=== PATIENT | female | born 1985 | race Caucasian/White ===

== ENCOUNTER 2017-10-02 23:38 | Emergency (ER) | payer OTHER ==
[~2017-10-02] VITALS: Ht 170.2 cm; Wt 86.0 kg
[~2017-10-02 23:38] MED LIST: MAGN400C PO
[2017-10-03 01:02] LABS: BASOPHILS % (AUTO) 0.4 % (0-1); EOSINOPHILS % (AUTO) 0.8 % (0-6); HEMOGLOBIN 9.5 g/dl (12.0-16.0); LYMPHOCYTES # (AUTO) 1.2 X10'3 (1.1-4.8); LYMPHOCYTES % (AUTO) 23.5 % (21-51); MEAN CORPUSCULAR HEMOGLOBIN 25.8 PG (27.0-31.0); MEAN CORPUSCULAR HGB CONC 33.8 % (33.0-36.5); MEAN CORPUSCULAR VOLUME 76.1 FL (78-98); MEAN PLATELET VOLUME 8.4 FL (7.4-10.4); MONOCYTES # (AUTO) 0.7 X10'3 (0-0.9); MONOCYTES % (AUTO) 13.7 % (2-12); NEUTROPHILS % (AUTO) 61.6 % (42-75); PLATELET COUNT 208 X10'3 (140-440); RED BLOOD COUNT 3.68 X10'6 (4.20-5.60); RED CELL DISTRIBUTION WIDTH 15.7 % (11.5-14.5); WHITE BLOOD COUNT 4.9 X10'3 (4.5-11.0)
[2017-10-03 01:17] LABS: D-DIMER < 0.19 MG/L FEU (0-0.50)
[2017-10-03 01:23] LABS: ALANINE AMINOTRANSFERASE 19 U/L (12-78); ALBUMIN 3.7 G/DL (3.4-5.0); ALBUMIN/GLOBULIN RATIO 1.1 (1.1-1.5); ALKALINE PHOSPHATASE 66 IU/L (46-116); ANION GAP 9 (8-16); ASPARTATE AMINO TRANSFERASE 12 U/L (10-37); BILIRUBIN,TOTAL 0.5 MG/DL (0.1-1.0); BLOOD UREA NITROGEN 13 MG/DL (7-18); BUN/CREATININE RATIO 21.7 (6.6-38.0); CHLORIDE 105 MMOL/L (99-107); GLUCOSE 87 MG/DL (70-104); SODIUM 142 MMOL/L (135-145); TOTAL CARBON DIOXIDE 28.3 MMOL/L (24-32); TOTAL PROTEIN 7.1 G/DL (6.4-8.2); eGFR > 90 ML/MIN
[2017-10-03 01:28] LABS: CLARITY,URINE Clear (Clear); COLOR,URINE Yellow (Yellow); GLUCOSE, URINE Negative (Neg); KETONES,URINE 15 mg/dl (Neg); LEUKOCYTE ESTERASE ,URINE Trace (Neg); NITRITES, URINE Negative (Neg); OCCULT BLOOD,URINE Negative (Neg); PH,URINE 5.5 (4.8-8.0); PROTEIN,URINE Negative (Neg); URINE HCG NEGATIVE (NEG)
[2017-10-03 01:29] LABS: UA COLLECTION TYPE CLN CATCH MIDSTREAM
[2017-10-03 01:35] LABS: BACTERIA,URINE 1+ /HPF (Neg); MUCUS STRANDS FEW /LPF (Neg); RBC,URINE NONE SEEN /HPF (0-2); SQUAMOUS EPITHELIAL CELL,UR FEW /LPF (FEW); WBC,URINE 0-4 /HPF (0-4)
[2017-10-03 01:49] VITALS: BP 135/79
== END 2017-10-03 02:00 | disposition home or self-care (01) ==
LOC: ER 23:38
DX: R00.0 Tachycardia, unspecified (principal); D50.9 Iron deficiency anemia, unspecified; R10.11 Right upper quadrant pain
CPT/HCPCS: 36415; 71045; 80053; 81001; 81025; 83880; 84484; 85025; 85379; 87088; 93005; 99285

== ENCOUNTER 2020-03-31 12:39 | Emergency (ER) | payer BC, OTHER, SELFPAY ==
[~2020-03-31] VITALS: Ht 170.2 cm; Wt 91.0 kg
[2020-03-31] MEDS ORDERED: NO HOME MEDS (13:17)
[2020-03-31] MEDS ORDERED: ketorolac trometh. 30mg/ml inj. IV ONE (13:20)
[2020-03-31] MEDS ORDERED: normal saline 1000ML IV soln IVB ONE (13:20)
[2020-03-31] MEDS ORDERED: LORazepam 2 mg/ml vial IV ONE (13:20)
[2020-03-31 13:45] LABS: BASOPHILS % (AUTO) 0.4 % (0-1); EOSINOPHILS # (AUTO) 0.1 X10'3 (0-0.9); HEMATOCRIT 37.6 % (35.0-45.0); HEMOGLOBIN 12.8 g/dl (12.0-16.0); LYMPHOCYTES % (AUTO) 18.5 % (21-51); MEAN CORPUSCULAR HEMOGLOBIN 29.5 PG (27.0-31.0); MEAN CORPUSCULAR HGB CONC 34.1 g/dL (33.0-36.5); MEAN CORPUSCULAR VOLUME 86.5 FL (78-98); MEAN PLATELET VOLUME 8.7 FL (7.4-10.4); MONOCYTES # (AUTO) 0.6 X10'3 (0-0.9); MONOCYTES % (AUTO) 10.9 % (2-12); NEUTROPHILS # (AUTO) 3.8 X10'3 (1.8-7.7); NEUTROPHILS % (AUTO) 69.2 % (42-75); PLATELET COUNT 172 X10'3 (140-440); RED BLOOD COUNT 4.35 X10'6 (4.20-5.60); RED CELL DISTRIBUTION WIDTH 13.6 % (11.5-14.5); WHITE BLOOD COUNT 5.4 X10'3 (4.5-11.0)
[2020-03-31 14:03] LABS: ALANINE AMINOTRANSFERASE 19 U/L (12-78); ALBUMIN 4.1 G/DL (3.4-5.0); ALBUMIN/GLOBULIN RATIO 1.2 (1.1-1.5); ALKALINE PHOSPHATASE 67 IU/L (46-116); ANION GAP 14 (8-16); ASPARTATE AMINO TRANSFERASE 13 U/L (10-37); BILIRUBIN,TOTAL 0.6 MG/DL (0.1-1.0); BLOOD UREA NITROGEN 9 MG/DL (7-18); BUN/CREATININE RATIO 10.6 (6.6-38.0); CALCIUM 9.1 MG/DL (8.5-10.1); CHLORIDE 104 MMOL/L (99-107); CREATININE 0.85 MG/DL (0.40-0.90); GLUCOSE 108 MG/DL (70-104); POTASSIUM 3.2 MMOL/L (3.5-5.1); SODIUM 139 MMOL/L (135-145); TOTAL CARBON DIOXIDE 21.4 MMOL/L (24-32); TOTAL PROTEIN 7.6 G/DL (6.4-8.2); eGFR 77 ML/MIN
[2020-03-31 14:53] VITALS: BP 123/67
== END 2020-03-31 14:54 | disposition home or self-care (01) ==
LOC: ER 12:39 → EEVIPCON 12:39 → ER 14:54
DX: B34.9 Viral infection, unspecified (principal); M79.10 Myalgia, unspecified site; R51 Headache; R07.89 Other chest pain; Z98.51 Tubal ligation status; Z98.890 Other specified postprocedural states
CPT/HCPCS: 36415; 71045; 80053; 84145; 85025; 93005; 96374; 96375; 99285; J1885; J2060; J7030

== ENCOUNTER 2020-05-10 07:50 | Outpatient (CLI) | payer BC ==
[~2020-05-10 07:50] MED LIST changes: -MAGN400C PO; +NO HOME MEDS
[2020-05-10 09:17] LABS: ALANINE AMINOTRANSFERASE 27 U/L (12-78); ALBUMIN 4.1 G/DL (3.4-5.0); ALBUMIN/GLOBULIN RATIO 1.2 (1.1-1.5); ALKALINE PHOSPHATASE 58 IU/L (46-116); ANION GAP 8 (8-16); ASPARTATE AMINO TRANSFERASE 12 U/L (10-37); BILIRUBIN,TOTAL 0.5 MG/DL (0.1-1.0); BLOOD UREA NITROGEN 14 MG/DL (7-18); BUN/CREATININE RATIO 25.5 (6.6-38.0); CALCIUM 8.7 MG/DL (8.5-10.1); CHLORIDE 105 MMOL/L (99-107); CHOL/HDL RATIO 2.7 (0.00-4.99); CHOLESTEROL 119 MG/DL (0-200); CREATININE 0.55 MG/DL (0.40-0.90); GLUCOSE 81 MG/DL (70-104); HDL CHOLESTEROL 44 MG/DL (35-60); LDL CHOLESTEROL 71 MG/DL (50-100); POTASSIUM 4.3 MMOL/L (3.5-5.1); SODIUM 140 MMOL/L (135-145); TOTAL CARBON DIOXIDE 27.5 MMOL/L (24-32); TOTAL PROTEIN 7.4 G/DL (6.4-8.2); TRIGLYCERIDES 36 MG/DL (20-135); eGFR > 90 ML/MIN
== END 2020-05-10 23:59 | disposition home or self-care (01) ==
LOC: LAB 07:50
PROVIDERS: ATTEND Family Medicine
DX: Z00.00 Encounter for general adult medical examination without abnormal findings (principal)
CPT/HCPCS: 36415; 80053; 80061; 84439; 84443

== ENCOUNTER 2020-11-15 15:24 | Outpatient (CLI) | payer BC ==
[2020-11-15 16:44] LABS: % IRON SATURATION 96 % (11-46); IRON 244 UG/DL (49-151); TOTAL IRON BINDING CAPACITY 255 UG/DL (259-388)
[2020-11-15 16:51] LABS: ALANINE AMINOTRANSFERASE 32 U/L (12-78); ALBUMIN 3.7 G/DL (3.4-5.0); ALBUMIN/GLOBULIN RATIO 1.2 (1.1-1.5); ALKALINE PHOSPHATASE 98 IU/L (46-116); ANION GAP 8 (8-16); ASPARTATE AMINO TRANSFERASE 16 U/L (10-37); BILIRUBIN,TOTAL 0.4 MG/DL (0.1-1.0); BLOOD UREA NITROGEN 14 MG/DL (7-18); BUN/CREATININE RATIO 16.9 (6.6-38.0); C-REACTIVE PROTEIN 0.52 MG/DL (0.0-0.5); CHLORIDE 106 MMOL/L (99-107); CHOL/HDL RATIO 3.1 (0.00-4.99); CHOLESTEROL 95 MG/DL (0-200); CREATININE 0.83 MG/DL (0.40-0.90); GLUCOSE 102 MG/DL (70-104); HDL CHOLESTEROL 31 MG/DL (35-60); LDL CHOLESTEROL 47 MG/DL (50-100); POTASSIUM 4.1 MMOL/L (3.5-5.1); SODIUM 141 MMOL/L (135-145); TOTAL CARBON DIOXIDE 26.8 MMOL/L (24-32); TOTAL PROTEIN 6.8 G/DL (6.4-8.2); TRIGLYCERIDES 168 MG/DL (20-135); eGFR 79 ML/MIN
[2020-11-15 17:15] LABS: HEMOGLOBIN 9.3 g/dl (12.0-16.0); WHITE BLOOD COUNT 9.9 X10'3 (4.5-11.0)
[2020-11-15 17:17] LABS: HEMATOCRIT 26.5 % (35.0-45.0); MEAN CORPUSCULAR HEMOGLOBIN 31.5 PG (27.0-31.0); MEAN CORPUSCULAR HGB CONC 35.2 g/dL (33.0-36.5); MEAN CORPUSCULAR VOLUME 89.3 FL (78-98); MEAN PLATELET VOLUME 10.2 FL (7.4-10.4); RED BLOOD COUNT 2.97 X10'6 (4.20-5.60)
[2020-11-15 17:56] LABS: RHEUM FACTOR QUAL REFLEX TITER NEGATIVE (Neg)
[2020-11-15 18:27] LABS: PLATELET COUNT 14 X10'3 (140-440)
[2020-11-15 19:17] LABS: NUCLEATED RED BLOOD CELLS 1 /100WBC (0-0); TOTAL CELLS COUNTED 100
[2020-11-15 19:21] LABS: PLATELET ESTIMATE DECREASED
[2020-11-15 20:02] LABS: ANISOCYTOSIS 2+
[2020-11-15 20:04] LABS: POLYCHROMASIA 1+
[2020-11-15 20:32] LABS: SMUDGE CELLS 1+
[2020-11-17 17:04] LABS: ANTINUCLEAR ANTIBODIES Negative (Negative)
== END 2020-11-15 23:59 | disposition home or self-care (01) ==
LOC: LAB 15:24
PROVIDERS: ATTEND Family Medicine
DX: Z00.00 Encounter for general adult medical examination without abnormal findings (principal); D64.9 Anemia, unspecified; R53.83 Other fatigue
CPT/HCPCS: 36415; 80053; 80061; 82306; 82607; 82652; 82746; 83540; 83550; 84439; 84443; 85007; 85025; 85651; 86038; 86140; 86430

== ENCOUNTER 2020-12-19 12:06 | Outpatient (CLI) | payer BC ==
[2020-12-19 12:56] LABS: ALANINE AMINOTRANSFERASE 405 U/L (12-78); ALBUMIN 3.7 G/DL (3.4-5.0); ALBUMIN/GLOBULIN RATIO 1.1 (1.1-1.5); ALKALINE PHOSPHATASE 86 IU/L (46-116); ASPARTATE AMINO TRANSFERASE 131 U/L (10-37); BILIRUBIN,DIRECT 0.4 MG/DL (0-0.3); BILIRUBIN,TOTAL 1.5 MG/DL (0.1-1.0)
--- NOTE | 2020-12-19 12:56 | NUR ---
PT ARRIVED FOR BLOOD DRAW FROM PREVIOUSLY PLACED PICC LINE. PICC LINE HUB CLEANED AND ALLOWED TO DRY. PICC ASPIRATES BLOOD AND FLUSHES WITHOUT DIFFICULTY. BLOOD DRAWN, PLACED INTO GREEN TUBE PER LAB AND LABELED CORRECTLY. PICC LINE FLUSHED USING 20 CC SALINE AND ALCOHOL CAPS PLACED ON BOTH LUMENS. Campos MORENO PICC RN
== END 2020-12-19 23:59 | disposition home or self-care (01) ==
LOC: LAB 12:06
PROVIDERS: ATTEND Nurse Practitioner Family
DX: C95.00 Acute leukemia of unspecified cell type not having achieved remission (principal)
CPT/HCPCS: 36415; 80076

== ENCOUNTER 2020-12-28 14:05 | Emergency (ER) | payer BC ==
[~2020-12-28] VITALS: Ht 170.2 cm; Wt 89.1 kg
[2020-12-28 14:08] VITALS: BP 128/70
== END 2020-12-28 14:36 | disposition home or self-care (01) ==
LOC: ER 14:05 → EEVIPCON 14:05 → ER 14:36
DX: H57.04 Mydriasis (principal); C91.00 Acute lymphoblastic leukemia not having achieved remission; R11.0 Nausea; H53.8 Other visual disturbances; Z98.51 Tubal ligation status; Z98.890 Other specified postprocedural states
CPT/HCPCS: 99281; 99284

== ENCOUNTER 2021-01-02 06:16 | Day surgery (SDC) | payer BC ==
[~2021-01-02] VITALS: Ht 170.2 cm; Wt 88.9 kg
[2021-01-02] MEDS ORDERED: PROC-8 PO (06:41)
[2021-01-02] MEDS ORDERED: [UNRECOGNIZED DRUG - CODE] (06:41)
[2021-01-02] MEDS ORDERED: LEVO500T89 PO (06:41)
[2021-01-02] MEDS ORDERED: DASA70TA PO (06:41)
[2021-01-02] MEDS ORDERED: ACYC-1 PO (06:41)
[2021-01-02] MEDS ORDERED: ONDA8TAB65 PO (06:41)
[2021-01-02 06:44] VITALS: BP 139/87
[2021-01-02] MEDS ORDERED: normal saline 1000ml 1,000 ML IV PRN (06:45)
--- NOTE | 2021-01-02 07:48 | NUR ---
IV PLACEMENT WITH PICC LINE REMOVAL DUE TO PICC LINE BEING PULLED MOSTLY OUT DURING DRESSING CHANGE FROM OTHER FACILITY. Campos MORENO PICC RN
[2021-01-02] MEDS ORDERED: heparin sodium, porcine/PF 100unit/ml 5ML syringe ONE ×2 (08:13→08:59)
[2021-01-02] MEDS ORDERED: LIDOcaine 1%/PF 5ML 10 MG/ML VIAL ONE (08:14)
[2021-01-02] MEDS ORDERED: fentaNYL/PF 50MCG/1 ML 2ML syringe ONE ×3 (08:14→08:47)
[2021-01-02] MEDS ORDERED: midazolam 1 mg/ML 2ml injection ONE ×5 (08:14→08:47)
[2021-01-02] MEDS ORDERED: ondansetron/PF 4mg/2ml inj ONE (08:16)
[2021-01-02 09:21] VITALS: BP 120/59
[2021-01-02 09:36] VITALS: BP 111/72
[2021-01-02 09:48] VITALS: BP 111/73
[2021-01-02 10:03] VITALS: BP 112/74
== END 2021-01-02 10:20 | disposition home or self-care (01) ==
LOC: SSTAY O 06:16
PROVIDERS: ATTEND Radiology Vascular & Interventional Radiology
DX: C92.00 Acute myeloblastic leukemia, not having achieved remission (principal); D50.9 Iron deficiency anemia, unspecified; Z79.899 Other long term (current) drug therapy; Z98.890 Other specified postprocedural states; Z98.51 Tubal ligation status
CPT/HCPCS: 36415; 36561; 76937; 77001; 85610; 99152; 99153; C1769; C1788; C1894; J1642; J2250; J2405; J3010

== ENCOUNTER 2021-01-15 10:43 | Outpatient (CLI) | payer BC ==
[~2021-01-15 10:43] MED LIST changes: +ACYC-1 PO; +DASA70TA PO; +LEVO500T89 PO; -NO HOME MEDS; +ONDA8TAB65 PO; +PROC-8 PO; +[UNRECOGNIZED DRUG - CODE]
[2021-01-15 11:25] LABS: MEAN PLATELET VOLUME 8.2 FL (7.4-10.4)
[2021-01-15 11:27] LABS: HEMATOCRIT 26.4 % (35.0-45.0); MEAN CORPUSCULAR HGB CONC 34.1 g/dL (33.0-36.5); PLATELET COUNT 93 X10'3 (140-440); RED CELL DISTRIBUTION WIDTH 15.9 % (11.5-14.5)
[2021-01-15 11:36] LABS: ALANINE AMINOTRANSFERASE 78 U/L (12-78); ALBUMIN/GLOBULIN RATIO 1.3 (1.1-1.5); ALKALINE PHOSPHATASE 94 IU/L (46-116); ANION GAP 10 (8-16); ASPARTATE AMINO TRANSFERASE 14 U/L (10-37); BILIRUBIN,TOTAL 0.7 MG/DL (0.1-1.0); BLOOD UREA NITROGEN 12 MG/DL (7-18); BUN/CREATININE RATIO 21.1 (6.6-38.0); CALCIUM 9.2 MG/DL (8.5-10.1); CHLORIDE 102 MMOL/L (99-107); CREATININE 0.57 MG/DL (0.40-0.90); GLUCOSE 102 MG/DL (70-104); POTASSIUM 4.1 MMOL/L (3.5-5.1); SODIUM 141 MMOL/L (135-145); TOTAL CARBON DIOXIDE 29.1 MMOL/L (24-32); TOTAL PROTEIN 7.2 G/DL (6.4-8.2); eGFR > 90 ML/MIN
[2021-01-15 11:42] LABS: WHITE BLOOD COUNT 0.2 X10'3 (4.5-11.0)
[2021-01-15 12:00] LABS: NUCLEATED RED BLOOD CELLS 0 /100WBC (0-0); TOTAL CELLS COUNTED 50
[2021-01-15 12:01] LABS: LARGE PLATELETS FEW; PLATELET ESTIMATE DECREASED
== END 2021-01-15 23:59 | disposition home or self-care (01) ==
LOC: LAB 10:43
PROVIDERS: ATTEND Internal Medicine Hematology & Oncology
DX: C91.00 Acute lymphoblastic leukemia not having achieved remission (principal)
CPT/HCPCS: 36415; 80053; 85007; 85025

== ENCOUNTER 2021-02-01 11:13 | Day surgery (SDC) | payer BC ==
[~2021-02-01] VITALS: Ht 170.2 cm; Wt 190.0 kg
[2021-02-01] VITALS (9 sets, daily range): BP systolic 108–132; BP diastolic 24–77
[2021-02-01] MEDS ORDERED: acetaminophen 325mg tablet PO ONE (12:15)
[2021-02-01] MEDS ORDERED: diphenhydrAMINE 25mg capsule PO ONE (12:15)
== END 2021-02-01 15:15 | disposition home or self-care (01) ==
LOC: SSTAY O 11:13
PROVIDERS: ATTEND Internal Medicine Hematology & Oncology
DX: C91.00 Acute lymphoblastic leukemia not having achieved remission (principal)
CPT/HCPCS: 36415; 36430; 86885; 86900; 86901; 86920; 86945; P9016; Q0163

== ENCOUNTER 2021-06-14 12:03 | Emergency (ER) | payer BC ==
[2021-06-14] VITALS (8 sets, daily range): BP systolic 93–125; BP diastolic 16–77
[~2021-06-14] VITALS: Ht 170.2 cm; Wt 86.4 kg
[~2021-06-14 12:03] MED LIST changes: -ACYC-1 PO; -LEVO500T89 PO; -ONDA8TAB65 PO; -PROC-8 PO; -[UNRECOGNIZED DRUG - CODE]
[2021-06-14] MEDS ORDERED: heparin sodium, porcine/PF 100unit/ml 5ML syringe IV SCH (19:05)
== END 2021-06-14 19:20 | disposition home or self-care (01) ==
LOC: ER 12:04 → EEVIPCON 12:04 → ER 19:20
DX: D64.9 Anemia, unspecified (principal); C91.00 Acute lymphoblastic leukemia not having achieved remission; R53.1 Weakness; Z98.51 Tubal ligation status; Z98.890 Other specified postprocedural states
CPT/HCPCS: 36415; 36430; 86885; 86900; 86901; 86920; 96374; 99285; J1642; P9016

== ENCOUNTER 2024-03-04 07:31 | Emergency (ER) | payer BC ==
[~2024-03-04] VITALS: Ht 170.2 cm; Wt 78.8 kg
[2024-03-04 07:41] VITALS: TEMP 96.7
[2024-03-04] MEDS: ondansetron/PF 4mg/2ml inj IV ONE (08:13)
[2024-03-04] MEDS: ringers solution, lacted 1,000 ML IV ONE ×2 (08:14)
[2024-03-04 12:43] LABS: BASOPHILS % (AUTO) 0.3 % (0-1); EOSINOPHILS % (AUTO) 0.4 % (0-6); HEMATOCRIT 40.8 % (35.0-45.0); HEMOGLOBIN 13.5 g/dl (12.0-16.0); LYMPHOCYTES # (AUTO) 0.4 X10'3 (1.1-4.8); LYMPHOCYTES % (AUTO) 3.1 % (21-51); MEAN CORPUSCULAR HEMOGLOBIN 27.2 PG (27.0-31.0); MEAN CORPUSCULAR VOLUME 82.6 FL (78-98); MEAN PLATELET VOLUME 8.1 FL (7.4-10.4); MONOCYTES # (AUTO) 0.6 X10'3 (0-0.9); MONOCYTES % (AUTO) 4.9 % (2-12); NEUTROPHILS # (AUTO) 11.5 X10'3 (1.8-7.7); NEUTROPHILS % (AUTO) 91.3 % (42-75); PLATELET COUNT 245 X10'3 (140-440); RED BLOOD COUNT 4.95 X10'6 (4.20-5.60); RED CELL DISTRIBUTION WIDTH 14.8 % (11.5-14.5); WHITE BLOOD COUNT 12.6 X10'3 (4.5-11.0)
[2024-03-04 12:57] LABS: ALANINE AMINOTRANSFERASE 46 U/L (12-78); ALBUMIN 4.2 G/DL (3.4-5.0); ALBUMIN/GLOBULIN RATIO 1.4 (1.1-1.5); ALKALINE PHOSPHATASE 67 IU/L (46-116); ANION GAP 8 (8-16); ASPARTATE AMINO TRANSFERASE 14 U/L (10-37); BILIRUBIN,TOTAL 0.4 MG/DL (0.1-1.0); BLOOD UREA NITROGEN 16 MG/DL (7-18); CALCIUM 9.4 MG/DL (8.5-10.1); CHLORIDE 106 MMOL/L (99-107); CREATININE 0.64 MG/DL (0.40-0.90); GLUCOSE 104 MG/DL (70-104); POTASSIUM 3.9 MMOL/L (3.5-5.1); SODIUM 143 MMOL/L (135-145); TOTAL CARBON DIOXIDE 29.4 MMOL/L (24-32); TOTAL PROTEIN 7.3 G/DL (6.4-8.2); eCRCL 117 ML/MIN; eGFR > 90 ML/MIN
[2024-03-04 13:42] VITALS: BP 104/69; PULSE 98; RESP 18; O2SAT 100
== END 2024-03-04 13:46 | disposition home or self-care (01) ==
LOC: ER 07:32
DX: R11.10 Vomiting, unspecified (principal); Z98.890 Other specified postprocedural states; Z98.51 Tubal ligation status
CPT/HCPCS: 36415; 74176; 80053; 85025; 96361; 96374; 99285; J2405; J7120

== ENCOUNTER 2025-05-25 09:42 | Outpatient (CLI) | payer BC ==
--- NOTE | 2025-05-25 19:05 | CARDIOLOGY REPORT ---
APPROVED REPORT EXAM: Comprehensive 2D, Doppler, and color-flow Echocardiogram. Patient Location: OUT-PATIENT Blood Pressure: 130/81 mmHg Heart Rate: 63 bpm Rhythm: NSR Indications Evaluate for pericardial effusion Hx of Leukemia with cardiotoxic meds Benzene Worker is Madi Collins MD No previous echo 2D Dimensions IVSd 1.0 (0.7-1.1cm) LVDd 4.7 cm PWd 1.0 (0.7-1.1cm) IVSs 1.3 (0.8-1.2cm) LVDs 3.4 (2.5-4.0cm) PWs 1.3 (0.8-1.2cm) LVOT Diameter 2.17 (1.8-2.4cm) LVEF(%) 53.9 (>50%) IVC 15.13 mm FS (%) 27.9 % SV 56.6 ml M-Mode Dimensions Left Atrium(MM) 4.18 (2.5-4.0cm) Aortic Root 2.59 (2.2-3.7cm) Aortic Valve AoV Peak Lukasz. 154.6 cm/s AoV VTI 32.7 cm AO Peak GR. 9.6 mmHg AO Mean GR. 5 mmHg LVOT VTI 25.33 cm LVOT Peak Lukasz. 117.8 cm/s JESSICA (VMAX) 2.82 cm2 JESSICA (VTI) 2.87 cm2 Mitral Valve MV E Velocity 85.2 cm/s MV DECEL TIME 180 ms MV A Velocity 64.7 cm/s MV PHT 48 ms E/A Ratio 1.3 MVA (PHT) 4.60 cm2 TDI E/Medial E' 10.7 Tricuspid Valve TR P. Velocity 217 cm/s RAP ESTIMATE 10 mmHg TR Peak Gr. 19 mmHg RVSP 29 mmHg Pulmonary Vein S2 Velocity 54.32 cm/s PVa Duration 77 msec LEFT VENTRICLE Normal LV size and wall thickness. Overall systolic function is normal. LVEF is 60%. RIGHT VENTRICLE RV appears normal in size and function. ATRIA Left atrium is mildly dilated. AORTIC VALVE Trileaflet AV appears sclerotic without stenosis. No insufficiency. MITRAL VALVE The mitral valve is normal in structure. Trace mitral regurgitation. TRICUSPID VALVE The tricuspid valve is normal in structure. Trace tricuspid regurgitation. PULMONIC VALVE The pulmonary valve is normal in structure. Trace pulmonic regurgitation. GREAT VESSELS The aortic root is normal in size. The IVC is normal in size and collapses >50% with inspiration. PERICARDIUM There is a mild circumferential pericardial effusion with slight RA collapse, but otherwise no evidence of hemodynamic compromise. Other Information Study Quality: Adequate Conclusion Normal LV size and wall thickness. Overall systolic function is normal. LVEF is 60%. RV appears normal in size and function. Left atrium is mildly dilated. Trileaflet AV appears sclerotic without stenosis. No insufficiency. The mitral valve is normal in structure. Trace mitral regurgitation. The tricuspid valve is normal in structure. Trace tricuspid regurgitation. The pulmonary valve is normal in structure. Trace pulmonic regurgitation. There is a mild circumferential pericardial effusion with slight RA collapse, but otherwise no evidence of hemodynamic compromise.
== END 2025-05-25 23:59 | disposition home or self-care (01) ==
LOC: CARD DIAG 09:42
PROVIDERS: ATTEND Internal Medicine Hematology & Oncology
DX: I31.39 Other pericardial effusion (noninflammatory) (principal); C91.00 Acute lymphoblastic leukemia not having achieved remission
CPT/HCPCS: 93306